=== PATIENT | male | born 1940 | race Caucasian/White ===

== ENCOUNTER 2022-01-27 01:39 | Emergency (ER) | payer OTHER ==
[~2022-01-27] VITALS: Ht 170.2 cm; Wt 72.4 kg
[2022-01-27 03:32] LABS: CLARITY URINE CLEAR (CLEAR); COLOR URINE YELLOW (YELLOW); KETONES URINE NEGATIVE (NEGATIVE); LEUKOCYTE ESTERASE URINE NEGATIVE (NEGATIVE); NITRITE URINE NEGATIVE (NEGATIVE); OCCULT BLOOD URINE NEGATIVE (NEGATIVE); PROTEIN URINE NEGATIVE (NEGATIVE); SPECIFIC GRAVITY URINE 1.015 (1.005-1.030); UROBILINOGEN URINE 0.2 E.U./dL (0.2-1.0)
[2022-01-27 03:33] LABS: BASOPHILS % 0.4 % (0.0-2.0); EOSINOPHILS % 3.3 % (0.0-5.0); HEMATOCRIT. 36.9 % (42.0-52.0); HEMOGLOBIN. 12.8 g/dL (14.0-18.0); LYMPHOCYTES % 25.8 % (20.0-50.0); MEAN CORPUSCULAR HEMOGLOBIN 33.1 pg (28.0-32.0); MEAN CORPUSCULAR VOLUME 95.5 fL (80.0-94.0); MEAN PLATELET VOLUME 7.2 fl (7.4-10.4); MONOCYTES % 5.4 % (2.0-8.0); NEUTROPHILS % 65.1 % (40.0-76.0); PLATELET 209 x1000/uL (130-400); RED BLOOD CELL COUNT 3.87 mill/uL (4.7-6.1); RED CELL DISTRIBUTION WIDTH 12.6 % (11.6-14.6)
[2022-01-27] MEDS ORDERED: IOHEXOL-350 100 ML BOTTLE ONE (03:57)
[2022-01-27 04:17] LABS: CHLORIDE 102 mEq/L (98-107)
[2022-01-27 05:09] VITALS: BP 129/87
[2022-01-27] MEDS ORDERED: MECLIZINE 25MG TABLET PO ONE (06:00)
== END 2022-01-27 08:18 | disposition short-term general hospital (02) ==
LOC: ER 01:39
DX: R42 Dizziness and giddiness (principal); I10 Essential (primary) hypertension; Z20.822 Contact with and (suspected) exposure to COVID-19
CPT/HCPCS: 36415; 70450; 70496; 70498; 71045; 80053; 81003; 84484; 85025; 87426; 93005; 99285; C9803; J8597; Q9967